=== PATIENT | female | born 1955 | race African-American/Black ===

== ENCOUNTER 2016-08-25 15:40 | Emergency (ER) | payer MEDICARE, OTHER ==
[~2016-08-25] VITALS: Ht 170.2 cm; Wt 60.9 kg
[~2016-08-25 15:40] MED LIST: ASPI-664 PO; CARAS PO; CARV6.2579 PO; ERGO500014 PO; FURO20TA3 PO; LISI10TA2 PO; METF-382 PO; METH500T PO; NITR0.4T6 SL; PANT40TA4 PO; TRAZ100T15 PO
[2016-08-25 15:47] VITALS: Ht 170.2 cm; Wt 60.9 kg
== END 2016-08-25 20:20 | disposition left against medical advice (07) ==
LOC: E/R 15:40
DX: Z53.21 Procedure and treatment not carried out due to patient leaving prior to being seen by health care provider (principal)